=== PATIENT | female | born 1980 | race Caucasian/White ===

== ENCOUNTER 2017-12-18 23:40 | Emergency (ER) | payer MEDICAID ==
--- NOTE | 2017-12-19 00:59 | EDPHY ---
H & P Stated Complaint: LLQ pain- 5weeks-spotting Time Seen by Provider: 12/18/17 23:58 HPI/ROS: HPI This is a patient at estimated gestational age of 5 weeks based on last menstrual period of November 09 who presents with 1 day of vaginal bleeding and left-sided lower abdominal pain. The bleeding is mild though persistent. She is not using more than 1 pad per hour. The pain feels like a cramp of her left lower side. She talked to her behaviorist today and was concerned so she comes into the emergency department. She says her menses are extremely regular occurring once every 28 days. Two weeks ago she had a positive home urine test. REVIEW OF SYSTEMS Constitutional: No fever, no chills. Eyes: No discharge. ENT: No sore throat. Cardiovascular: No chest pain, no palpitations. Respiratory: No cough, no shortness of breath. Gastrointestinal: No abdominal pain, no vomiting. Genitourinary: No hematuria. Musculoskeletal: No back pain. Skin: No rashes. Neurological: No headache. PMHx: 3 uncomplicated pregnancies, PHYSICAL General Appearance: Alert, no distress Eyes: Pupils equal and round no pallor or injection ENT, Mouth: Mucous membranes moist Respiratory: There are no retractions, lungs are clear to auscultation Cardiovascular: Regular rate and rhythm Gastrointestinal: Abdomen is soft and non-tender, no masses, bowel sounds normal Neurological: A&O, moves all extremities Skin: Warm and dry, no rashes Musculoskeletal: Neck is supple non tender Extremities: symmetrical, full range of motion Psychiatric: Patient is oriented X 3, there is no agitation Source: Patient Exam Limitations: No limitations - Personal History LMP (Females 10-55): Current Tetanus Diphtheria and Acellular Pertussis (TDAP): No - Medical/Surgical History Hx Asthma: No Hx Chronic Respiratory Disease: No Hx Diabetes: No Hx Cardiac Disease: No Hx Renal Disease: No Hx Cirrhosis: No Hx Alcoholism: No Hx HIV/AIDS: No Hx Splenectomy or Spleen Trauma: No Other PMH: - Social History Smoking Status: Never smoked Constitutional: Initial Vital Signs Temperature (C) 36.8 C 12/18/17 23:43 Heart Rate 90 12/18/17 23:43 Respiratory Rate 16 12/18/17 23:43 Blood Pressure 139/99 H 12/18/17 23:43 O2 Sat (%) 98 12/18/17 23:43 O2 Delivery Mode Room Air Allergies/Adverse Reactions: povidone-iodine [From Betadine Skin Cleanser] Allergy (Mild, Unverified 23:42) soap [From Betadine Skin Cleanser] Allergy (Unknown, Unverified 12/18/17 23:42) Home Medications: Medication Instructions Recorded NK [No Known Home Meds] 12/18/17 Medical Decision Making - Diagnostics Imaging Results: Ultrasound demonstrates no IUP, with 12 mm endometrial lining, there is a 1.9 cm mildly complex left ovarian follicular cyst without torsion, small amount of fluid in the cul-de-sac, discussed with Dr. Balbuena of Radiology. Imaging: Discussed imaging studies w/ business unit leader Radiologist, I viewed and interpreted images myself Differential Diagnosis: This is a 37-year-old at 5 weeks estimated gestational age who presents with vaginal spotting and left lower quadrant abdominal pain. Differential diagnosis includes ectopic , , implantation bleeding. Patient had labs earlier today which revealed a beta HCG of 22. This is concerning given that she is fairly confident of her dates. She had Rh testing as well and she is known to be Rh positive. She had an ultrasound performed which demonstrated no IUP with a left-sided ovarian cyst which is complex. Differential for this includes involuting corpus luteum cyst versus ectopic. Because of this ultrasound finding, [facility] She suspects that this is likely a miscarriage, given her low HCG, however we cannot completely rule out ectopic . The patient is stable, has normal vital signs, has pain that is very manageable and has minimal bleeding at this time, thus I do not feel she needs to be admitted for observation. As the patient feels comfortable going home. We will plan on her repeat HCG testing in 48 hr, Dr. Cunningham will consult with the patient's behaviorist tomorrow. The patient was counseled on the findings of her ultrasound and is aware that she is likely suffering a miscarriage. We have discussed return precautions. Departure - Departure Disposition: Home, Routine, Self-Care Clinical Impression: Vaginal bleeding in Condition: Good Instructions: Threatened Miscarriage (ED) Additional Instructions: Please follow-up with your behaviorist tomorrow. You should have a repeat blood test of (HCG) on Monday and that will determine if you need to have the ultrasound on . Please return to the emergency department if your bleeding more than 1 pad per hour or if your pain is severe. Referrals: Carmenza Espinoza MD [Primary Care Provider] - As per Instructions
[2017-12-19 02:35] VITALS: BP 124/82
== END 2017-12-19 02:35 | disposition home or self-care (01) ==
DX: O20.8 Other hemorrhage in early pregnancy (principal); Z3A.01 Less than 8 weeks gestation of pregnancy
CPT/HCPCS: 84144-90